=== PATIENT | male | born 1980 | race Caucasian/White ===

== ENCOUNTER 2020-01-27 22:08 | Emergency (ER) | payer BC, SELFPAY ==
[2020-01-27 22:16] VITALS: BP 148/113; PULSE 92; RESP 14; TEMP 36.9; O2SAT 98; BMI 43.5
--- NOTE | 2020-01-27 22:22 | PC.NURSE ---
Nurses are at bedside, EKG done at 2220 and shown to E.R physician.
--- NOTE | 2020-01-27 22:41 | XR_ITS ---
WS: [id number] PORTABLE CHEST HISTORY: chest pain COMPARISON: 03/27/2016 Lungs are clear and well expanded. No pleural effusion or pneumothorax. Cardiac size: Normal. Mediastinum/Aorta: Normal mediastinum. No osseous abnormality seen. XR/XR chest 1V portable [id number] IMPRESSION: Unremarkable portable chest.
--- NOTE | 2020-01-27 22:42 | ED_ITS ---
HPI - General Adult General: Chief complaint: Headache Stated complaint: sheppard, cp, arm numb, back pain Time Seen by Provider: 01/27/20 22:14 Source: patient Mode of arrival: ambulatory Limitations: no limitations History of Present Illness: HPI narrative: Patient is a 40-year-old male presents to ED today with multiple medical complaints. First of all he has been telling me he has had left-sided chest pains intermittently over the past few years . Patient apparently has been evaluated by cardiology (Dr. Blanton) at [facility] and told he has angina. Patient tells me he takes metoprolol and one other medication that he does not remember the name of for circulation . He tells me over the past couple of days he has been having intermittent headaches that last 3 to 5 minutes and then subside on their own. He tells me he has had approximately 40-50 episodes of the pain over the past few days. He describes the pain as left-sided and pulsating and clogging like sensation. He reports dizziness with the headache that again subsides once the headache does. He has not noticed any alleviating or worsening factors to his discomfort. Headache is not positional or exertional. Patient tells me his chest pain will often start after an episode of a headache. He is also describing some tingling to the ulnar aspect of his left arm and pinky finger that again has been present intermittently for the past 1 to 2 weeks. Associated symptoms: Reports chest pain and headache(s); Deny dyspnea, malaise, nausea, rash, palpitations, syncope or vomiting Treatments prior to arrival: none Review of Systems Const: Denies: fever(s), chills, body aches, change in appetite, change in weight, fatigue or malaise Eyes: Denies: change in vision, blurry vision, photophobia, floaters or seeing flashes ENMT: Denies: throat pain, enlarged tonsils, odynophagia, nasal discharge, nasal congestion or sinus pain Card: Reports: chest pain and lightheadedness; Denies: palpitations, irregular heart rhythm, edema, swelling of feet/ankles, syncope, pre-syncope, dyspnea on exertion, orthopnea, leg pain with exertion or acrocyanosis Resp: Denies: dyspnea, productive cough, non-productive cough, pain on inspiration, change in phlegm color, hemoptysis or chest congestion GI: Denies: abdominal pain, nausea, vomiting, heartburn, diarrhea, change in stool character, hematochezia or melena : Denies: flank pain, difficulty urinating, dysuria, urinary frequency, urinary urgency or urinary hesitancy Musc: Denies: neck pain, back pain, extremity pain, extremity swelling, joint pain, joint swelling or joint redness Skin/Breast: Denies: rash Neuro: Reports: headache(s) and sensory changes (L UE/pinky finger); Denies: numbness in extremities or weakness in extremities PFSH ED PFSH: Social History Smoking and tobacco status: never smoked Physical Exam Const: COMMON NORMALS: no acute distress, patient oriented x3, no limitations and alert NUTRITIONAL APPEARANCE: obese morbidly obese ORIENTATION/CONSCIOUSNESS: Yes oriented to person, Yes oriented to place and Yes oriented to time HENMT: COMMON NORMALS: normocephalic, atraumatic, hearing grossly normal bilaterally, external ears normal, EAC's normal, TM's normal bilaterally, Normal external nose present, Normal nasal mucous membranes and turbinates present, moist oral mucous membranes and oropharynx normal HEAD & SCALP: normal to inspection, normocephalic and atraumatic FACE & SINUS: normal facial exam and sinuses nontender NOSE: Normal external nose present and Normal nasal mucous membranes and turbinates present EXTERNAL EAR: Yes external ears normal EXTERNAL AUDITORY CANAL: EAC's normal TYMPANIC MEMBRANE: TM's normal bilaterally THROAT: posterior oropharynx normal, tonsils normal and uvula midline Eye: COMMON NORMALS: Equal, round and reactive pupils present, EOMs intact bilaterally and no scleral icterus PUPIL: Yes Equal, round and reactive pupils present Neck/C-Spine: COMMON NORMALS: full ROM, no lymphadenopathy and no meningeal signs GENERAL: Yes normal visual inspection CERVICAL SPINE: Yes cervical ROM normal, No pain with cervical ROM, No Cervical spine tenderness and No Paracervical muscle tenderness Lymph: LYMPHATIC: no lymphadenopathy noted Chest: COMMONS NORMALS: normal inspection of the chest and normal palpation of entire chest wall Resp: COMMON NORMALS: normal respiratory effort and clear to auscultation bilaterally AUSCULTATION: clear to auscultation bilaterally Cardio: COMMON NORMALS: regular rate and regular rhythm RATE: regular rate RHYTHM: regular rhythm GI: COMMON NORMALS: Normal to inspection, nondistended, normoactive bowel sounds present, Soft to palpation, non-tender, No hepatosplenomegaly present and no masses PALPATION: Yes Soft to palpation and Yes No hepatosplenomegaly present Back/Pelvis: COMMON NORMALS: thoracic and lumbar spine normal to inspection, no thoracic nor lumbar tenderness, thoraco-lumbar ROM normal and straight leg raise negative bilaterally Extremity: COMMON NORMALS: normal to inspection GENERAL: Yes normal exam except as noted Neuro: NATY COMA SCALE: document GCS findings Naty coma scale eye opening: Spontaneous [place] coma scale verbal response: Orientated [place] coma scale motor response: Obey commands Naty coma scale total score: 15 COMMON NORMALS: patient oriented x3, CN's II-XII intact bilaterally, moves all extremities, no focal motor deficits, no sensory deficits noted and gait normal SENSORIUM/ORIENTATION: Yes alert, Yes oriented to person, Yes oriented to place and Yes oriented to time MENINGEAL SIGNS: Yes no meningeal signs CRANIAL NERVES: Yes CN normal except as noted COORDINATION/BALANCE: finger- to-nose test normal SPEECH: speech normal SENSORY EXAM: Yes extremities (normal) MOTOR EXAM: 5/5 motor strength present throughout COORDINATION: [id number] test normal Skin: COMMON NORMALS: no rashes or lesions noted GENERAL SKIN EXAM: no rashes or lesions noted Course Vital Signs: Vital signs: Vital Signs Temperature 98.5 F 01/27/20 22:16 Pulse Rate 74 01/27/20 22:59 Respiratory Rate 18 01/27/20 22:59 Blood Pressure 153/115 01/27/20 22:59 Pulse Oximetry 98 01/27/20 22:16 MDM - General Adult MDM Narrative: Medical decision making narrative: Pts workup consisting of CBC, CMP, BNP trop, EKG, CXR, and head CT are all normal. Recommend he followup with PCP if symptoms persist. Return to ED precautions given. Lab Data: Labs: Lab Results 01/27/20 01/27/20 01/27/20 Range/Units 22:43 22:43 22:43 WBC 6.3 (4.0-10.0) 10^3/ uL RBC 4.78 (4.1-5.3) 10^6/u L Hgb 13.8 (11.7-16.6) g/dL Hct 41.0 L (42.0-52.0) % MCV 85.8 (80-94) fL MCH 28.9 (28.0-34.0) pg MCHC 33.7 (30.0-36.0) g/dL RDW 11.9 L (12.1-15.1) % Plt Count 304 (130-400) 10^3/c mm MPV 8.4 (7.4-10.4) fL Neut % (Auto) 48.9 % Lymph % (Auto) 37.3 % [place] % (Auto) 10.0 % Eos % (Auto) 3.0 % Baso % (Auto) 0.8 % Neut # (Auto) 3.1 (1.8-7.7) 10^3/u L Lymph # (Auto) 2.4 (0.8-4.8) 10^3/u L [place] # (Auto) 0.6 (0.2-0.9) 10^3/u L Eos # (Auto) 0.2 (0.0-0.8) 10^3/u L Baso # (Auto) 0.1 (0.0-0.1) 10^3/u L Nucleated RBC % (a uto) 0 % Nucleated RBCs # 0.0 /100WBC Sodium 135 L (136-145) mmol/L Potassium 3.9 (3.5-5.1) mmol/L Chloride 97 L (98-107) mmol/L Carbon Dioxide 24 (22-29) mmol/L Anion Gap 17.9 (5-19) BUN 13 (6-20) mg/dL Creatinine 0.9 (0.7-1.2) mg/dL GFR Calculation 94.4 (90-130) mL/min Glucose 107 (65-115) mg/dL Calculated Osmolal ity 277 L (285-295) mOsm/k g Calcium 10.0 (8.5-10.5) mg/dL Total Bilirubin 0.3 (0.15-1.2) mg/dL AST 28 (0-40) U/L ALT 49 H (0-41) U/L Alkaline Phosphata se 80 (40-130) IU/L Troponin T Baselin e 6 (0-15) ng/L NT-Pro-B Natriuret Pep 16 (0-125) pg/mL Total Protein 7.2 (6.6-8.7) g/dL Albumin 4.8 (3.5-5.2) g/dL Globulin 2.4 (1.3-4.6) g/dL Imaging Data^: CT Head: Radiologist's impression: [address] [address] [address] Scan Report Signed Patient: Jericho Lanza Unit #: [id number] : 1980 Age/Sex: 40 / M ADM Date: 01/27/20 Loc: ER Room/Bed: Attending Dr: Ordering Provider/Ordering MD: Dominga León Date of Service: 01/27/20 Procedure(s): CT head wo con* [id number] Accession Number(s): [id number] Report Number: [id number] PROCEDURE INFORMATION: Exam: CT Head Without Contrast Exam date and time: 01/27/2020 10:47 PM Age: 40 years old Clinical indication: Pain; Headache; Additional info: Has TECHNIQUE: Imaging protocol: Computed tomography of the head without contrast. Radiation optimization: All CT scans at this facility use at least one of these dose optimization techniques: automated exposure control; mA and/or kV adjustment per patient size (includes targeted exams where dose is matched to clinical indication); or iterative reconstruction. COMPARISON: No relevant prior studies available. RADIATION DOSE METRICS: Total DLP (mGy-cm): 862.76 FINDINGS: Brain: No acute intracranial hemorrhage or mass effect. No definite acute infarct by CT. Ventricles: Ventricle size is normal for age. Bones/joints: No definite acute skull fracture. Sinuses: Included paranasal sinuses appear essentially clear. Mastoid air cells: No significant acute finding. CT/CT head wo con* [id number] IMPRESSION: 1. No acute intracranial hemorrhage or mass effect. 2. Other findings discussed above. Radiation Dose CTDIVOL = (mGy): DLP = 862.76 (mGy-cm) Dictated By: Cleveland Burdick MD Signed By: Cleveland Burdick MD Signed Date/Time: 01/27/202330 DD/ 28 EKG Data^: EKG 1: EKG interpretation date: 01/27/20 EKG interpretation time: 22:26 Interpretation: Sinus rhythm Rate [address] elevation or depression changes noted Normal QT interval Computer generated interpretation: Head CT 01/27/20 22:42 IMPRESSION: 1. No acute intracranial hemorrhage or mass effect. 2. Other findings discussed above. Radiation Dose CTDIVOL = (mGy): DLP = 862.76 (mGy-cm) Discharge Plan Discharge Patient Disposition: Home, Self-Care Clinical Impression: Arm paresthesia, left Headache Qualifiers: Headache type: unspecified Headache chronicity pattern: episodic headache Intractability: not intractable Qualified Code(s): R51 - Headache Chest pain Qualifiers: Chest pain type: unspecified Qualified Code(s): R07.9 - Chest pain, unspecified Condition: Stable Discharge Orders: Discharge Order (Routine); Ordered 01/28/20 Ordered By: Dominga León Referrals: Too Velasco FNP [Primary Care Provider] - Activity Restrictions/Additional Instructions: Please followup with primary care if symptoms persist. You may return to the ED for any new or worsening symptoms or any other concerns you may have. Coding Level of Care Code ED Per Diem Interpreter for Leonardo Fwkirstin Exam Comprehensive
--- NOTE | 2020-01-27 22:42 | ECG_ITS ---
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 Measurements Intervals [place] Rate: 89 P: 56 LA: 166 QRS: 81 QRSD: 95 T: 64 QT: 365 QTc: 446 Interpretive Statements SINUS RHYTHM Compared to ECG 03/27/2016 22:33:42 Sinus arrhythmia no longer present Electronically Signed On 01-28-2020 21:50:53 CDT by Jon Llanos M.D. [email or web address]
[2020-01-27 22:59] VITALS: BP 153/115; PULSE 74; RESP 18
[2020-01-27 22:59] LABS: Basophils # 0.1 10^3/uL (0.0-0.1); Basophils % 0.8 %; Eosinophils # 0.2 10^3/uL (0.0-0.8); Hemoglobin 13.8 g/dL (11.7-16.6); Lymphocytes # 2.4 10^3/uL (0.8-4.8); Lymphocytes % 37.3 %; Mean Corpuscular HGB Conc 33.7 g/dL (30.0-36.0); Mean Corpuscular Hemoglobin 28.9 pg (28.0-34.0); Mean Corpuscular Volume 85.8 fL (80-94); Mean Platelet Volume 8.4 fL (7.4-10.4); Monocytes # 0.6 10^3/uL (0.2-0.9); Neutrophils # 3.1 10^3/uL (1.8-7.7); Neutrophils % 48.9 %; Nucleated Red Blood Cells % 0 %; Platelet Count 304 10^3/cmm (130-400); Red Blood Count 4.78 10^6/uL (4.1-5.3); Red Cell Distribution Width 11.9 % (12.1-15.1); White Blood Count 6.3 10^3/uL (4.0-10.0)
[2020-01-27 23:15] LABS: Troponin(5th) Baseline 6 ng/L (0-15)
[2020-01-27 23:24] LABS: Alanine Aminotransferase 49 U/L (0-41); Albumin Level 4.8 g/dL (3.5-5.2); Alkaline Phosphatase 80 IU/L (40-130); Anion Gap 17.9 (5-19); Aspartate Amino Transferase 28 U/L (0-40); Blood Urea Nitrogen 13 mg/dL (6-20); Carbon Dioxide 24 mmol/L (22-29); Chloride 97 mmol/L (98-107); Globulin 2.4 g/dL (1.3-4.6); Glomerular Filtration Rate 94.4 mL/min (90-130); Glucose 107 mg/dL (65-115); NT Pro B Type Natriuretic Pept 16 pg/mL (0-125); Osmolality Calculated 277 mOsm/kg (285-295); Potassium 3.9 mmol/L (3.5-5.1); Sodium 135 mmol/L (136-145); Total Bilirubin 0.3 mg/dL (0.15-1.2); Total Protein 7.2 g/dL (6.6-8.7)
[2020-01-28 00:33] VITALS: BP 130/89; PULSE 86; RESP 18; TEMP 36.6
== END 2020-01-28 00:41 | disposition home or self-care (01) ==
PROVIDERS: Emergency Provider Physician Assistant; PCP Nurse Practitioner
DX: R20.2 Paresthesia of skin (principal); R51 Headache; R07.9 Chest pain, unspecified
CPT/HCPCS: 12345; 70450; 71045; 80053; 83880; 84484; 85025; 93005; 99283